=== PATIENT | male | born 1970 | race Hispanic/Latino ===

== ENCOUNTER 2022-08-12 18:35 | Emergency (ER) | payer MEDICARE ==
[~2022-08-12] VITALS: Ht 167.6 cm; Wt 118.4 kg
[2022-08-12] MEDS ORDERED: AMOX1TAB16 PO (19:45)
[2022-08-12] MEDS ORDERED: ACETAMINOPHEN 500 MG TABLET PO ONE (20:00)
[2022-08-12] MEDS ORDERED: CEFTRIAXONE 1G VIAL IM ONE (20:00)
[2022-08-12] MEDS ORDERED: IBUPROFEN 600 MG TABLET PO ONE (20:00)
[2022-08-12] MEDS ORDERED: IBUPROFEN 400 MG TABLET PO ONE (20:00)
[2022-08-12 20:39] LABS: APPEARANCE,URINE CLEAR (CLEAR); BILIRUBIN,URINE NEGATIVE (NEGATIVE); COLOR,URINE YELLOW (YELLOW); GLUCOSE, URINE (UA) 30 mg/dL (NEGATIVE); KETONES,URINE NEGATIVE (NEGATIVE); LEUKOCYTE ESTERASE ,URINE NEGATIVE Leu/uL (NEGATIVE); NITRATE,URINE NEGATIVE (NEGATIVE); OCCULT BLOOD,URINE NEGATIVE (NEGATIVE); PROTEIN,URINE 20 mg/dL (NEGATIVE); UROBILINOGEN,URINE 3 mg/dL (0.2-1.0)
[2022-08-12 20:48] LABS: BACTERIA,URINE RARE /HPF (None Seen); MUCUS,URINE RARE LPF (None Seen); WBC,URINE 0-1 /HPF (0-1)
[2022-08-12 21:30] LABS: BASOPHILS % (AUTO) 0.5 % (0.0-5.0); EOSINOPHILS % (AUTO) 1.1 % (0.0-8.0); HEMATOCRIT 43.4 % (42-54); LYMPHOCYTES % (AUTO) 15.3 % (21.0-51.0); MEAN CORPUSCULAR HEMOGLOBIN 30.4 pg (27.0-33.0); MEAN CORPUSCULAR HGB CONC 34.1 g/dL (32.0-36.0); MEAN CORPUSCULAR VOLUME 89.1 fL (79-99); MONOCYTES % (AUTO) 6.7 % (3.0-13.0); NEUTROPHILS % (AUTO) 76.2 % (40.0-77.0); PLATELET COUNT (AUTO) 188 K/uL (130-400); RED BLOOD CELL COUNT(AUTO) 4.87 MIL/uL (4.50-6.20); RED CELL DISTRIBUTION WIDTH 12.2 % (11.0-15.5); WHITE BLOOD COUNT (AUTO) 6.5 K/uL (4.8-10.8)
[2022-08-12] MEDS ORDERED: 0.9%NACL 1000ML 1,000 ML IV ONE (21:30)
[2022-08-12] MEDS ORDERED: MORPHINE 4 MG SYG IVP ONE (21:30)
[2022-08-12] MEDS ORDERED: ONDANSETRON 4MG INJ IVP ONE (21:30)
[2022-08-12 21:41] LABS: CREATININE 1.1 mg/dL (0.5-1.5); POTASSIUM 3.9 mmol/L (3.5-5.1)
[2022-08-12 21:45] LABS: ALBUMIN 3.6 g/dL (3.5-5.0); TOTAL PROTEIN, SERUM 7.8 g/dL (6.0-8.3)
[2022-08-12 22:45] VITALS: BP 156/82
== END 2022-08-12 22:47 | disposition home or self-care (01) ==
LOC: EDH 18:35
DX: H66.43 Suppurative otitis media, unspecified, bilateral (principal); K76.0 Fatty (change of) liver, not elsewhere classified; Z20.822 Contact with and (suspected) exposure to COVID-19; R42 Dizziness and giddiness
CPT/HCPCS: 99285; 84484; 80053; 83690; 85025; 87040 ×2; 87880; 87804 ×2; 83605; 81001; 36415; 87635; 76705; 96372; 96374; 96361; 96375; 93005; C9803; J7030; J0696; J2405; J2270

== ENCOUNTER 2023-08-26 16:43 | Emergency (ER) | payer MEDICARE ==
[~2023-08-26 16:43] MED LIST: AMOX1TAB16 PO
== END 2023-08-26 18:13 | disposition left against medical advice (07) ==
LOC: EDH 16:43
DX: S09.8XXA Other specified injuries of head, initial encounter (principal); Z53.21 Procedure and treatment not carried out due to patient leaving prior to being seen by health care provider; X58.XXXA Exposure to other specified factors, initial encounter; Y93.89 Activity, other specified; Y92.89 Other specified places as the place of occurrence of the external cause; Y99.8 Other external cause status